=== PATIENT | male | born 1980 | race Caucasian/White ===

== ENCOUNTER 2020-04-24 07:32 | Emergency (ER) | payer OTHER ==
[2020-04-24 07:58] LABS: BASOPHIL 0.7 % (0-2); HCT 54.5 % (42.0-52.0); LYMPHOCYTE 17.5 % (15-48); MCH 32.6 pg (25.0-31.0); MCHC 33.9 g/dL (32.0-36.0); MCV 96.1 fL (78.0-100.0); MONOCYTE 7.7 % (0-12); MPV 10.1 fL (6.0-9.5); NEUTROPHIL 70.4 % (41-80); NRBC 0; PLT 232 K/uL (150-400); RBC 5.67 M/uL (4.70-6.00); RDW 12.7 % (11.5-14.0); WBC 7.3 K/uL (4.0-10.5)
[2020-04-24 08:11] LABS: INR 1.1 (0.9-1.2); PROTHROMBIN TIME 13.5 SECONDS (11.4-13.6); PTT 27.5 SECONDS (22.2-34.7)
[2020-04-24 08:17] LABS: ALBUMIN 3.7 g/dL (3.4-5.0); BILIRUBIN - TOTAL 0.7 mg/dL (0.2-1.0); BUN/CREAT RATIO (CALC) 21.2 RATIO; CREATININE 1.46 mg/dL (0.67-1.17); GLOBULIN (CALCULATION) 3.1 g/dL; TOTAL PROTEIN 6.8 g/dL (6.4-8.2)
[2020-04-24 08:22] LABS: HGB 18.5 g/dl (13.2-18.0)
== END 2020-04-24 09:27 | disposition home or self-care (01) ==
LOC: FER 07:32
PROVIDERS: Emergency Medicine
DX: I49.1 Atrial premature depolarization (principal); R71.8 Other abnormality of red blood cells; I10 Essential (primary) hypertension
CPT/HCPCS: 36415; 71045; 80053; 84484; 85025; 85610; 85730; 93005